=== PATIENT | female | born 1940 | race Caucasian/White ===

== ENCOUNTER 2016-04-21 09:28 | Emergency (ER) | payer OTHER, MEDICARE ==
[~2016-04-21] VITALS: Ht 152.4 cm; Wt 45.4 kg
[~2016-04-21 09:28] MED LIST: ATEN-167 PO; Lipitor
[2016-04-21 09:39] VITALS: BP 146/80; PULSE 87; RESP 16; TEMP 97.6; O2SAT 100
--- NOTE | 2016-04-21 09:45 | NUR ---
Pt report received from BIANCA Levin. Pt c/o Left flank pain radiating to back x 4 days. Denies c/o N/V/D. Denies urinary symptoms. Family members at bedside.
--- NOTE | 2016-04-21 09:45 | NUR ---
Note undone in EDM - 04/21/16 at 1114 by CISCO # 20 gauge angiocath placed to RAC. Use of asceptic technique. Opsite placed over site. Blood return noted. Blood for lab drawn from site. Flushed with 10 cc of normal saline. No evidence of infiltration noted. Patient tolerated well.
--- NOTE | 2016-04-21 09:45 | NUR ---
Patient to ER bed 5 to gown for evaluation. Side rails up. Report given to LEEANN VALENZUELA.
--- NOTE | 2016-04-21 09:50 | NUR ---
DR. MARTÍNEZ AT BEDSIDE EXAMINING THE PT.
[2016-04-21 10:24] LABS: ANION GAP 7 (5-15); CHLORIDE 101 mmol/L (98-107); CREATININE 0.95 mg/dL (0.55-1.30); GLUCOSE 155 mg/dL (70-99); POTASSIUM 3.9 mmol/L (3.5-5.1); SODIUM SERUM 136 mmol/L (136-145); UREA NITROGEN, BLOOD 12 mg/dL (8-21)
[2016-04-21 10:28] LABS: BASOPHILS # (AUTO) 0.2 K/uL (0.0-0.2); BASOPHILS % (AUTO) 1.6 % (0.0-2.0); EOSINOPHILS % (AUTO) 0.2 % (0.0-4.0); HEMATOCRIT 35.3 % (36-48); HEMOGLOBIN 12.1 g/dL (12.0-16.0); LYMPHOCYTES # (AUTO) 1.5 K/uL (1.0-5.5); MEAN CORPUSCULAR HEMOGLOBIN 29 pg (27-31); MEAN CORPUSCULAR HGB CONC 34 % (32-36); MEAN CORPUSCULAR VOLUME 85 fL (79.0-98.0); MONOCYTES # (AUTO) 1.1 K/uL (0.0-1.0); MONOCYTES % (AUTO) 8.7 % (1.7-9.3); NEUTROPHILS # (AUTO) 9.3 K/uL (1.8-7.7); NEUTROPHILS % (AUTO) 77.5 % (40.0-70.0); PLATELET COUNT (AUTO) 242 K/uL (130-430); RED BLOOD CELL COUNT(AUTO) 4.18 MIL/uL (4.2-6.2); RED CELL DISTRIBUTION WIDTH 13.6 % (9.0-15.0); WHITE BLOOD COUNT (AUTO) 12.1 K/uL (4.8-10.8)
[2016-04-21 10:29] LABS: ALANINE AMINOTRANSFERASE 17 U/L (12-78); ALBUMIN 3.8 g/dL (3.4-4.8); ASPARTATE AMINOTRANSFERASE 20 U/L (10-37); TOTAL BILIRUBIN 0.5 mg/dL (0.0-1.0); TOTAL PROTEIN, SERUM 8.3 g/dL (6.4-8.3)
[2016-04-21 10:37] LABS: BILIRUBIN,URINE NEGATIVE (NEGATIVE); BLOOD, URINE 1+ (NEGATIVE); CLARITY/URINE CLEAR (CLEAR); COLOR,URINE YELLOW (YELLOW); GLUCOSE,URINE NEGATIVE (NEGATIVE); KETONES,URINE TRACE (NEGATIVE); LEUKOCYTE ESTERASE ,URINE NEGATIVE (NEGATIVE); NITRITE, URINE NEGATIVE (NEGATIVE); PROTEIN URINE TRACE (NEGATIVE)
[2016-04-21 10:45] LABS: BACTERIA,URINE FEW /HPF (None Seen); MUCUS,URINE 1+ /LPF (None Seen); WBC,URINE 0-3 /HPF (0-3)
[2016-04-21] MEDS ORDERED: KETOROLAC TROMETHAMINE 60 MG/2 ML VIAL IM ONE (11:15)
[2016-04-21] MEDS ORDERED: LORazepam 2 MG/ML VIAL (FOR ER USE) IM ONE (11:15)
--- NOTE | 2016-04-21 11:42 | NUR ---
INCENTIVE SPIROMETER GIVEN TO PT BY RT SALAZAR PT WITH TECHNIQUE. PT UNDERSTANDS NEED FOR INCENTIVE SPIROMETER AND WHEN TO USE IT
[2016-04-21 12:00] VITALS: BP 136/78; PULSE 80; RESP 16; TEMP 98.1
--- NOTE | 2016-04-21 12:00 | NUR ---
Patient given written and verbal discharge instructions and verbalizes understanding. ER MD DR. MARTÍNEZ discussed with patient the results and treatment provided. Given copies of tests performed in ER. Patient in stable condition. ID arm band removed. Rx of ZOFRAN, FLEXERIL, TRAMADOL given. Patient educated on pain management and to follow up with PMD. Pain Scale 0/10 Opportunity for questions provided and answered.
[2016-05-12 18:58] VITALS: O2SAT 100
== END 2016-04-21 12:00 | disposition home or self-care (01) ==
LOC: SED 09:28
DX: S20.212A Contusion of left front wall of thorax, initial encounter (principal); R10.9 Unspecified abdominal pain; M54.9 Dorsalgia, unspecified; I10 Essential (primary) hypertension; E78.00 Pure hypercholesterolemia, unspecified; M81.0 Age-related osteoporosis without current pathological fracture; W19.XXXA Unspecified fall, initial encounter; Y93.89 Activity, other specified; Y99.8 Other external cause status; Y92.89 Other specified places as the place of occurrence of the external cause
CPT/HCPCS: 36415; 71010; 80053; 81000; 85025; 96372; 99285; J1885; J2060

== ENCOUNTER 2016-05-02 13:02 | Outpatient (CLI) | payer OTHER, MEDICARE | END 2016-05-02 19:26 | disposition home or self-care (01) | LOC: SRD 13:02 | PROVIDERS: ATTEND Internal Medicine | DX: S92.911D Unspecified fracture of right toe(s), subsequent encounter for fracture with routine healing (principal); X58.XXXD Exposure to other specified factors, subsequent encounter ==

== ENCOUNTER 2017-03-31 14:02 | Emergency (ER) | payer OTHER, MEDICARE ==
[~2017-03-31] VITALS: Ht 152.4 cm; Wt 45.4 kg
[2017-03-31 14:27] VITALS: BP_SYST 158
[2017-03-31] MEDS ORDERED: KETOROLAC TROMETHAMINE 30 MG VIAL IVP ONE (18:00)
[2017-03-31 19:35] LABS: BASOPHILS # (AUTO) 0.1 K/uL (0.0-0.2); BASOPHILS % (AUTO) 0.7 % (0.0-2.0); EOSINOPHILS # (AUTO) 0.1 K/uL (0.0-0.4); HEMATOCRIT 35.5 % (36-48); HEMOGLOBIN 11.7 g/dL (12.0-16.0); LYMPHOCYTES # (AUTO) 1.9 K/uL (1.0-5.5); MEAN CORPUSCULAR HEMOGLOBIN 28 pg (27-31); MEAN CORPUSCULAR HGB CONC 33 % (32-36); MEAN CORPUSCULAR VOLUME 86 fL (79.0-98.0); MONOCYTES # (AUTO) 0.6 K/uL (0.0-1.0); MONOCYTES % (AUTO) 7.8 % (1.7-9.3); NEUTROPHILS # (AUTO) 4.5 K/uL (1.8-7.7); NEUTROPHILS % (AUTO) 63.5 % (40.0-70.0); PLATELET COUNT (AUTO) 265 K/uL (130-430); RED BLOOD CELL COUNT(AUTO) 4.13 MIL/uL (4.2-6.2); RED CELL DISTRIBUTION WIDTH 13.6 % (9.0-15.0); WHITE BLOOD COUNT (AUTO) 7.2 K/uL (4.8-10.8)
[2017-03-31 19:40] LABS: ANION GAP 6 (5-15); CALCIUM 9.5 mg/dL (8.4-11.0); CHLORIDE 104 mmol/L (98-107); CREATININE 0.79 mg/dL (0.55-1.30); GLUCOSE 103 mg/dL (70-99); POTASSIUM 4.2 mmol/L (3.5-5.1); SODIUM SERUM 138 mmol/L (136-145); UREA NITROGEN, BLOOD 11 mg/dL (8-21)
[2017-03-31 19:47] LABS: ALANINE AMINOTRANSFERASE 25 U/L (12-78); ALBUMIN 3.7 g/dL (3.4-4.8); ASPARTATE AMINOTRANSFERASE 31 U/L (10-37); TOTAL BILIRUBIN 0.3 mg/dL (0.0-1.0)
[2017-03-31 19:51] LABS: INR 1.1 (0.8-1.2); PROTHROMBIN TIME 11.1 SECS (9.5-12.5)
[2017-03-31] MEDS ORDERED: hydrALAZINE HCL 20 MG/ML VIAL IVP ONE (20:45)
[2017-03-31] MEDS ORDERED: ENALAPRILAT DIHYDRATE 1.25 MG/ML VIAL IVP ONE (20:45)
[2017-03-31] MEDS ORDERED: FENO145T PO (21:23)
[2017-03-31] MEDS ORDERED: PENT400T2 PO (21:23)
[2017-03-31] MEDS ORDERED: ENAL20TA PO (21:23)
[2017-03-31] MEDS ORDERED: ONDANSETRON HCL 4 MG/2 ML VIAL IVP ONE (23:00)
[2017-03-31] MEDS ORDERED: NACL 0.9% 500 ML IV ONE (23:00)
[2017-04-01 00:03] VITALS: BP_SYST 129
== END 2017-04-01 00:03 | disposition home or self-care (01) ==
LOC: SED 14:02
DX: M79.662 Pain in left lower leg (principal); I10 Essential (primary) hypertension; E78.00 Pure hypercholesterolemia, unspecified
CPT/HCPCS: 36415; 80053; 85025; 85379; 85610; 85730; 93005; 93971; 96374; 96375; 99285; J0360; J1885; J2405; J7040; J7030

== ENCOUNTER 2017-05-02 15:31 | Emergency (ER) | payer OTHER, MEDICARE ==
[~2017-05-02] VITALS: Ht 139.7 cm; Wt 45.4 kg
[~2017-05-02 15:31] MED LIST changes: -ATEN-167 PO; +ENAL20TA PO; +FENO145T PO; -Lipitor; +PENT400T2 PO
[2017-05-02 15:45] VITALS: BP_SYST 162
[2017-05-02] MEDS ORDERED: ONDANSETRON 4 MG ODT TAB PO ONE (16:00)
[2017-05-02 16:30] VITALS: BP_SYST 140
== END 2017-05-02 16:30 | disposition home or self-care (01) ==
LOC: SED 15:31
DX: S30.1XXA Contusion of abdominal wall, initial encounter (principal); I10 Essential (primary) hypertension; E78.00 Pure hypercholesterolemia, unspecified; M81.0 Age-related osteoporosis without current pathological fracture; X58.XXXA Exposure to other specified factors, initial encounter; Y93.89 Activity, other specified; Y92.89 Other specified places as the place of occurrence of the external cause; Y99.8 Other external cause status
CPT/HCPCS: 74018; 99283; Q0162

== ENCOUNTER 2017-07-06 15:23 | Emergency (ER) | payer OTHER, MEDICARE ==
[~2017-07-06] VITALS: Ht 152.4 cm; Wt 45.4 kg
[2017-07-06 15:27] VITALS: BP_SYST 149
[2017-07-06] MEDS ORDERED: ACETAMINOPHEN 325 MG TABLET PO ONE (16:00)
[2017-07-06 16:20] VITALS: BP_SYST 159
== END 2017-07-06 16:20 | disposition home or self-care (01) ==
LOC: SED 15:23
DX: S62.666A Nondisplaced fracture of distal phalanx of right little finger, initial encounter for closed fracture (principal); I10 Essential (primary) hypertension; E78.00 Pure hypercholesterolemia, unspecified; M81.0 Age-related osteoporosis without current pathological fracture; W20.8XXA Other cause of strike by thrown, projected or falling object, initial encounter; Y93.89 Activity, other specified; Y92.89 Other specified places as the place of occurrence of the external cause; Y99.8 Other external cause status
CPT/HCPCS: 73140-TC; 99284

== ENCOUNTER 2018-09-17 13:46 | Outpatient (CLI) | payer BC ==
[~2018-09-17 13:46] MED LIST changes: +PENT400T12 PO; -PENT400T2 PO
== END 2018-09-17 20:55 | disposition home or self-care (01) ==
LOC: SRD 13:46
PROVIDERS: ATTEND Internal Medicine
DX: M25.561 Pain in right knee (principal)
CPT/HCPCS: 73564

== ENCOUNTER 2018-10-20 11:06 | Emergency (ER) | payer BC ==
[~2018-10-20] VITALS: Ht 152.4 cm; Wt 45.4 kg
[2018-10-20 11:15] VITALS: BP_SYST 140
[2018-10-20 14:18] VITALS: BP_SYST 140
== END 2018-10-20 14:27 | disposition home or self-care (01) ==
LOC: SED 11:06
DX: M25.561 Pain in right knee (principal); E78.00 Pure hypercholesterolemia, unspecified; I10 Essential (primary) hypertension; Z90.89 Acquired absence of other organs
CPT/HCPCS: 73564; 93971; 99284

== ENCOUNTER 2018-12-28 10:03 | Emergency (ER) | payer BC ==
[~2018-12-28] VITALS: Ht 152.4 cm; Wt 45.4 kg
[~2018-12-28 10:03] MED LIST changes: -PENT400T12 PO; +PENT400T17 PO
[2018-12-28 10:10] VITALS: BP_SYST 163
[2018-12-28 12:05] VITALS: BP_SYST 150
== END 2018-12-28 12:05 | disposition home or self-care (01) ==
LOC: SED 10:03
DX: S83.92XA Sprain of unspecified site of left knee, initial encounter (principal); M25.462 Effusion, left knee; E78.00 Pure hypercholesterolemia, unspecified; I10 Essential (primary) hypertension; Z79.899 Other long term (current) drug therapy; W01.0XXA Fall on same level from slipping, tripping and stumbling without subsequent striking against object, initial encounter; Y93.89 Activity, other specified; Y92.89 Other specified places as the place of occurrence of the external cause; Y99.8 Other external cause status
CPT/HCPCS: 73564; 99283

== ENCOUNTER 2019-01-08 09:32 | Outpatient (CLI) | payer BC | END 2019-01-08 21:04 | disposition home or self-care (01) | LOC: SRD 09:32 | PROVIDERS: ATTEND Internal Medicine | DX: M25.561 Pain in right knee (principal) | CPT/HCPCS: 73564 ==

== ENCOUNTER 2020-11-28 13:56 | Emergency (ER) | payer BC ==
[~2020-11-28] VITALS: Ht 144.8 cm; Wt 46.3 kg
[~2020-11-28 13:56] MED LIST changes: -ENAL20TA PO; +ENAL20TA18 PO
[2020-11-28 14:30] VITALS: BP_SYST 148
--- NOTE | 2020-11-28 14:38 | NUR ---
Patient to ER bed 07 to gown for evaluation. Side rails up.
--- NOTE | 2020-11-28 14:40 | NUR ---
Pt walked in to ER with c/o urinary pain, retention, burning and urgency x3 days, pain 8/10. Denies any fever, n/v at this time. VS stable, no acute distress noted.
--- NOTE | 2020-11-28 14:48 | NUR ---
ER Dr. Colbert at bedside examining patient.
[2020-11-28] MEDS ORDERED: cefTRIAXone 1 GM VIAL IM ONE ×2 (15:15→18:15)
[2020-11-28 15:17] LABS: BILIRUBIN,URINE NEGATIVE (NEGATIVE); BLOOD, URINE 1+ (NEGATIVE); CLARITY/URINE CLEAR (CLEAR); COLOR,URINE YELLOW (YELLOW); GLUCOSE,URINE NEGATIVE (NEGATIVE); KETONES,URINE NEGATIVE (NEGATIVE); LEUKOCYTE ESTERASE ,URINE NEGATIVE (NEGATIVE); NITRITE, URINE NEGATIVE (NEGATIVE); PH,URINE 5.5 (5.0-8.0); PROTEIN URINE NEGATIVE (NEGATIVE); UROBILINOGEN,URINE 0.2 (0.2-1.0)
[2020-11-28] MEDS ORDERED: LIDOCAINE 1%, 20 ML MDV 20 ML ONE ×2 (15:38→18:26)
[2020-11-28] MEDS ORDERED: TRIAMCINOLONE ACETONIDE 0.025% 80 GM CREAM.GM. TP STA (15:42)
[2020-11-28] MEDS ORDERED: cefTRIAXone 1 GM VIAL ONE (15:46)
[2020-11-28 15:48] LABS: BACTERIA,URINE FEW /HPF (None Seen); RBC,URINE 0-3 /HPF (0-3)
[2020-11-28 15:49] LABS: FINE GRANULAR CASTS,URINE 0-10 /LPF (None Seen); MUCUS,URINE None Seen /LPF (None Seen)
--- NOTE | 2020-11-28 16:25 | NUR ---
Pelvic exam performed by Dr Saravia with myself at bedside for entire examination. Patient unable to complete procedure, states she is in pain and do not feel comfortable . Patient assisted to position of comfort after examination.
--- NOTE | 2020-11-28 16:30 | NUR ---
Note maxim in ED - 11/28/20 at 1638 by [email or web address] Pelvic exam performed by Dr Saravia with myself at bedside for entire examination. Patient tolerated procedure . Patient assisted to position of comfort after examination.
--- NOTE | 2020-11-28 16:39 | NUR ---
Pt unable to tolerate transvaginal ultrasound , regular ultrasound will be done after water intake
[2020-11-28 17:09] LABS: BASOPHILS # (AUTO) 0.1 K/uL (0.0-0.2); BASOPHILS % (AUTO) 0.8 % (0.0-2.0); EOSINOPHILS # (AUTO) 0.1 K/uL (0.0-0.4); EOSINOPHILS % (AUTO) 0.8 % (0.0-4.0); HEMATOCRIT 37.2 % (36-48); HEMOGLOBIN 12.4 g/dL (12.0-16.0); LYMPHOCYTES % (AUTO) 30.5 % (20.5-51.5); MEAN CORPUSCULAR HEMOGLOBIN 28 pg (27-31); MEAN CORPUSCULAR HGB CONC 33 % (32-36); MEAN CORPUSCULAR VOLUME 85 fL (79.0-98.0); MONOCYTES # (AUTO) 0.9 K/uL (0.0-1.0); NEUTROPHILS # (AUTO) 5.9 K/uL (1.8-7.7); NEUTROPHILS % (AUTO) 58.9 % (40.0-70.0); PLATELET COUNT (AUTO) 294 K/uL (130-430); RED BLOOD CELL COUNT(AUTO) 4.38 MIL/uL (4.2-6.2); RED CELL DISTRIBUTION WIDTH 14.3 % (9.0-15.0); WHITE BLOOD COUNT (AUTO) 9.9 K/uL (4.8-10.8)
--- NOTE | 2020-11-28 17:10 | NUR ---
Patient transported to radiology for US, via ambulatory, accompanied by staff.
[2020-11-28 17:18] LABS: ANION GAP 6 (5-15); CALCIUM 9.6 mg/dL (8.4-11.0); CHLORIDE 103 mmol/L (98-107); CREATININE 0.99 mg/dL (0.55-1.30); GLUCOSE 99 mg/dL (70-99); POTASSIUM 3.9 mmol/L (3.5-5.1); SODIUM SERUM 136 mmol/L (136-145); UREA NITROGEN, BLOOD 16 mg/dL (8-21)
[2020-11-28 17:24] LABS: ALANINE AMINOTRANSFERASE 20 U/L (12-78); ALBUMIN 4.2 g/dL (3.4-4.8); ASPARTATE AMINOTRANSFERASE 24 U/L (10-37); TOTAL BILIRUBIN 0.3 mg/dL (0.0-1.0)
[2020-11-28] MEDS ORDERED: NITR-85 PO (18:12)
--- NOTE | 2020-11-28 18:30 | NUR ---
Patient given written and verbal discharge instructions and verbalizes understanding. ER MD discussed with patient the results and treatment provided. Patient in stable condition. ID arm band removed. Rx of Macrobid given. Patient educated on pain management and to follow up with PMD. Pain Scale 0. Opportunity for questions provided and answered. Medication side effect fact sheet provided.
[2020-11-28 18:34] VITALS: BP_SYST 148
== END 2020-11-28 18:34 | disposition home or self-care (01) ==
LOC: SED 13:56
DX: R30.0 Dysuria (principal); I10 Essential (primary) hypertension; E78.00 Pure hypercholesterolemia, unspecified; Z79.899 Other long term (current) drug therapy
CPT/HCPCS: 36415; 76830; 76857; 80053; 81000; 81003; 85025; 87086; 96372; 99284; J0696; J2001

== ENCOUNTER 2021-11-06 09:21 | Emergency (ER) | payer BC ==
[~2021-11-06] VITALS: Ht 127 cm; Wt 48.1 kg
[~2021-11-06 09:21] MED LIST changes: +NITR-85 PO
[2021-11-06 09:40] VITALS: BP_SYST 162
[2021-11-06] MEDS ORDERED: LORazepam 1 MG TABLET PO ONE (10:00)
[2021-11-06 10:21] LABS: BASOPHILS % (AUTO) 0.5 % (0.0-2.0); EOSINOPHILS # (AUTO) 0.1 K/uL (0.0-0.4); EOSINOPHILS % (AUTO) 0.9 % (0.0-4.0); HEMATOCRIT 34.7 % (36-48); HEMOGLOBIN 11.7 g/dL (12.0-16.0); LYMPHOCYTES # (AUTO) 1.4 K/uL (1.0-5.5); LYMPHOCYTES % (AUTO) 21.5 % (20.5-51.5); MEAN CORPUSCULAR HEMOGLOBIN 28 pg (27-31); MEAN CORPUSCULAR HGB CONC 34 % (32-36); MEAN CORPUSCULAR VOLUME 84 fL (79.0-98.0); MONOCYTES # (AUTO) 0.4 K/uL (0.0-1.0); MONOCYTES % (AUTO) 6.8 % (1.7-9.3); NEUTROPHILS # (AUTO) 4.5 K/uL (1.8-7.7); NEUTROPHILS % (AUTO) 70.3 % (40.0-70.0); PLATELET COUNT (AUTO) 286 K/uL (130-430); RED BLOOD CELL COUNT(AUTO) 4.14 MIL/uL (4.2-6.2); RED CELL DISTRIBUTION WIDTH 14.7 % (9.0-15.0); WHITE BLOOD COUNT (AUTO) 6.4 K/uL (4.8-10.8)
[2021-11-06 10:25] LABS: ANION GAP 5 (5-15); CALCIUM 8.9 mg/dL (8.4-11.0); CHLORIDE 104 mmol/L (98-107); CREATININE 1.27 mg/dL (0.55-1.30); GLUCOSE 118 mg/dL (70-99); POTASSIUM 3.7 mmol/L (3.5-5.1); SODIUM SERUM 138 mmol/L (136-145); UREA NITROGEN, BLOOD 19 mg/dL (8-21)
[2021-11-06 10:35] LABS: ALANINE AMINOTRANSFERASE 20 U/L (12-78); ALBUMIN 3.9 g/dL (3.4-4.8); ASPARTATE AMINOTRANSFERASE 28 U/L (10-37); TOTAL BILIRUBIN 0.2 mg/dL (0.0-1.0)
[2021-11-06] MEDS ORDERED: ALBMDI INH (11:16)
[2021-11-06] MEDS ORDERED: LORA-258 PO (11:16)
[2021-11-06 11:26] VITALS: BP_SYST 115
== END 2021-11-06 11:26 | disposition home or self-care (01) ==
LOC: SED 09:21
DX: F41.9 Anxiety disorder, unspecified (principal); R06.02 Shortness of breath; I10 Essential (primary) hypertension; Z79.899 Other long term (current) drug therapy
CPT/HCPCS: 36415; 71045; 80053; 83880; 84484; 85025; 93005; 99285

== ENCOUNTER 2023-04-17 15:22 | Emergency (ER) | payer BC ==
[~2023-04-17] VITALS: Ht 152.4 cm; Wt 49.9 kg
[~2023-04-17 15:22] MED LIST changes: +ALBMDI INH; +ENAL-79 PO; -ENAL20TA18 PO; +LORA-258 PO
[2023-04-17 15:30] VITALS: BP_SYST 193; PULSE 92; RESP 17; TEMP 97.6; O2SAT 96
[2023-04-17 16:04] LABS: COVID19 ANTIGEN SOFIA FIA NEGATIVE (NEGATIVE)
[2023-04-17 16:09] LABS: INFLUENZA TYPE A Negative (NEGATIVE); INFLUENZA TYPE B NEGATIVE (NEGATIVE)
[2023-04-17 16:33] LABS: BASOPHILS % (AUTO) 0.5 % (0.0-2.0); EOSINOPHILS % (AUTO) 0.9 % (0.0-4.0); HEMATOCRIT 32.8 % (36-48); HEMOGLOBIN 11.3 g/dL (12.0-16.0); LYMPHOCYTES # (AUTO) 0.8 K/uL (1.0-5.5); LYMPHOCYTES % (AUTO) 17.8 % (20.5-51.5); MEAN CORPUSCULAR HEMOGLOBIN 29 pg (27-31); MEAN CORPUSCULAR HGB CONC 35 % (32-36); MEAN CORPUSCULAR VOLUME 85 fL (79.0-98.0); MONOCYTES # (AUTO) 0.9 K/uL (0.0-1.0); MONOCYTES % (AUTO) 18.5 % (1.7-9.3); NEUTROPHILS # (AUTO) 2.9 K/uL (1.8-7.7); NEUTROPHILS % (AUTO) 62.3 % (40.0-70.0); PLATELET COUNT (AUTO) 264 K/uL (130-430); RED BLOOD CELL COUNT(AUTO) 3.87 MIL/uL (4.2-6.2); RED CELL DISTRIBUTION WIDTH 14.4 % (9.0-15.0); WHITE BLOOD COUNT (AUTO) 4.6 K/uL (4.8-10.8)
[2023-04-17 16:50] LABS: ANION GAP 8 (5-15); CALCIUM 9.3 mg/dL (8.4-11.0); CARBON DIOXIDE 28 mmol/L (23-29); CHLORIDE 103 mmol/L (98-107); CREATININE 1.17 mg/dL (0.55-1.30); GLUCOSE 102 mg/dL (74-106); POTASSIUM 4.6 mmol/L (3.5-5.1); SODIUM SERUM 139 mmol/L (136-145); UREA NITROGEN, BLOOD 21 mg/dL (8-21)
[2023-04-17] MEDS ORDERED: ACETAMINOPHEN 500 MG TABLET PO ONE (19:45)
[2023-04-17] MEDS ORDERED: IBUPROFEN 400 MG TABLET PO ONE (19:45)
[2023-04-17] MEDS ORDERED: ONDA-8 TL (20:14)
[2023-04-17 20:32] VITALS: BP_SYST 175; PULSE 90; RESP 17; TEMP 97.8; O2SAT 96
== END 2023-04-17 20:32 | disposition home or self-care (01) ==
LOC: SED 15:22
DX: J06.9 Acute upper respiratory infection, unspecified (principal); R05.9 Cough, unspecified; R09.81 Nasal congestion; J02.9 Acute pharyngitis, unspecified; I10 Essential (primary) hypertension; Z79.899 Other long term (current) drug therapy; Z20.822 Contact with and (suspected) exposure to COVID-19
CPT/HCPCS: 36415; 71045; 80048; 83880; 84484; 85025; 93005; 99285

== ENCOUNTER 2023-08-14 12:20 | Emergency (ER) | payer BC ==
[~2023-08-14] VITALS: Ht 162.6 cm; Wt 46.3 kg
[~2023-08-14 12:20] MED LIST changes: +ONDA-8 TL
[2023-08-14 12:30] VITALS: BP_SYST 170; PULSE 85; RESP 18; TEMP 98.1; O2SAT 98
[2023-08-14] MEDS: NACL 0.9% 1,000 ML IV ONE (13:19)
[2023-08-14] MEDS: ONDANSETRON HCL 4 MG/2 ML VIAL IVP ONE ×2 (13:20→15:03)
[2023-08-14 13:50] LABS: BASOPHILS % (AUTO) 0.2 % (0.0-2.0); HEMATOCRIT 33.7 % (36-48); HEMOGLOBIN 11.4 g/dL (12.0-16.0); LYMPHOCYTES # (AUTO) 0.4 K/uL (1.0-5.5); LYMPHOCYTES % (AUTO) 11.4 % (20.5-51.5); MEAN CORPUSCULAR HEMOGLOBIN 29 pg (27-31); MEAN CORPUSCULAR HGB CONC 34 % (32-36); MEAN CORPUSCULAR VOLUME 85 fL (79.0-98.0); MONOCYTES # (AUTO) 0.5 K/uL (0.0-1.0); MONOCYTES % (AUTO) 14.8 % (1.7-9.3); NEUTROPHILS # (AUTO) 2.6 K/uL (1.8-7.7); NEUTROPHILS % (AUTO) 73.6 % (40.0-70.0); PLATELET COUNT (AUTO) 242 K/uL (130-430); RED BLOOD CELL COUNT(AUTO) 3.99 MIL/uL (4.2-6.2); RED CELL DISTRIBUTION WIDTH 14.6 % (9.0-15.0); WHITE BLOOD COUNT (AUTO) 3.5 K/uL (4.8-10.8)
[2023-08-14 13:56] LABS: INFLUENZA TYPE A NEGATIVE (NEGATIVE); INFLUENZA TYPE B NEGATIVE (NEGATIVE)
[2023-08-14 14:05] LABS: ALANINE AMINOTRANSFERASE 18 U/L (12-78); ALBUMIN 3.9 g/dL (3.4-4.8); ANION GAP 12 (5-15); ASPARTATE AMINOTRANSFERASE 22 U/L (10-37); BILIRUBIN,DIRECT 0.1 mg/dL (0.0-0.3); CALCIUM 9.2 mg/dL (8.4-11.0); CARBON DIOXIDE 27 mmol/L (23-29); CHLORIDE 101 mmol/L (98-107); CREATININE 1.32 mg/dL (0.55-1.30); GLUCOSE 127 mg/dL (74-106); LIPASE 69 U/L (16-77); POTASSIUM 3.8 mmol/L (3.5-5.1); SODIUM SERUM 140 mmol/L (136-145); TOTAL BILIRUBIN 0.4 mg/dL (0.0-1.0); TOTAL PROTEIN, SERUM 7.7 g/dL (6.4-8.3); UREA NITROGEN, BLOOD 17 mg/dL (8-21)
[2023-08-14] MEDS: KETOROLAC TROMETHAMINE 30 MG VIAL IVP ONE (15:03)
[2023-08-14 15:27] LABS: BILIRUBIN,URINE NEGATIVE (NEGATIVE); BLOOD, URINE 2+ (NEGATIVE); CLARITY/URINE CLEAR (CLEAR); COLOR,URINE YELLOW (YELLOW); GLUCOSE,URINE NEGATIVE (NEGATIVE); KETONES,URINE NEGATIVE (NEGATIVE); LEUKOCYTE ESTERASE ,URINE NEGATIVE (NEGATIVE); NITRITE, URINE NEGATIVE (NEGATIVE); PROTEIN URINE NEGATIVE (NEGATIVE); UROBILINOGEN,URINE 0.2 (0.2-1.0)
[2023-08-14 15:46] LABS: BACTERIA,URINE RARE /HPF (None Seen); WBC,URINE 0-3 /HPF (0-3)
[2023-08-14] MEDS ORDERED: IBUP-2018 PO (16:05)
[2023-08-14] MEDS ORDERED: AMOX-423 PO (16:05)
[2023-08-14] MEDS ORDERED: ONDA-8 TL (16:05)
[2023-08-14 16:29] VITALS: BP_SYST 154; PULSE 88; RESP 16; TEMP 98.1; O2SAT 99
== END 2023-08-14 16:31 | disposition home or self-care (01) ==
LOC: SED 12:20
DX: B34.9 Viral infection, unspecified (principal); R51.9 Headache, unspecified; R11.2 Nausea with vomiting, unspecified; R19.7 Diarrhea, unspecified; I10 Essential (primary) hypertension; Z20.822 Contact with and (suspected) exposure to COVID-19
CPT/HCPCS: 99285; 74176; 96374; 71045; 96361; 96375; 87426; 80076; 80048; 81001; 83690; 85025; 36415; 96376; 87804 ×2; 81000; 81015; J1885; J2405; J7030

== ENCOUNTER 2023-11-20 17:59 | Emergency (ER) | payer BC ==
[~2023-11-20] VITALS: Ht 144.8 cm; Wt 49.9 kg
[~2023-11-20 17:59] MED LIST changes: +AMOX-423 PO; +IBUP-2018 PO
[2023-11-20 18:04] VITALS: BP_SYST 178; PULSE 85; RESP 16; TEMP 98.3; O2SAT 99
[2023-11-20] MEDS: ASPIRIN 81 MG TAB.CHEW PO ONE (18:48)
[2023-11-20 19:09] LABS: BASOPHILS # (AUTO) 0.1 K/uL (0.0-0.2); BASOPHILS % (AUTO) 1.6 % (0.0-2.0); EOSINOPHILS # (AUTO) 0.1 K/uL (0.0-0.4); EOSINOPHILS % (AUTO) 1.3 % (0.0-4.0); HEMATOCRIT 34.2 % (36-48); HEMOGLOBIN 11.7 g/dL (12.0-16.0); LYMPHOCYTES # (AUTO) 0.6 K/uL (1.0-5.5); LYMPHOCYTES % (AUTO) 12.7 % (20.5-51.5); MEAN CORPUSCULAR HEMOGLOBIN 28 pg (27-31); MEAN CORPUSCULAR HGB CONC 34 % (32-36); MEAN CORPUSCULAR VOLUME 83 fL (79.0-98.0); MONOCYTES # (AUTO) 0.7 K/uL (0.0-1.0); MONOCYTES % (AUTO) 15.1 % (1.7-9.3); NEUTROPHILS # (AUTO) 3.2 K/uL (1.8-7.7); NEUTROPHILS % (AUTO) 69.3 % (40.0-70.0); PLATELET COUNT (AUTO) 275 K/uL (130-430); RED BLOOD CELL COUNT(AUTO) 4.12 MIL/uL (4.2-6.2); RED CELL DISTRIBUTION WIDTH 15.2 % (9.0-15.0); WHITE BLOOD COUNT (AUTO) 4.6 K/uL (4.8-10.8)
[2023-11-20 19:14] LABS: INFLUENZA TYPE A Negative (NEGATIVE); INFLUENZA TYPE B NEGATIVE (NEGATIVE)
[2023-11-20] MEDS: ONDANSETRON 4 MG ODT TAB PO ONE (20:08)
[2023-11-20] MEDS: hydrALAZINE HCL 20 MG/ML VIAL IVP ONE (20:09)
[2023-11-20] MEDS: HYDROcodone/ACETAMIN 5-325 MG TAB (NORCO/ VICODIN) PO ONE (20:11)
[2023-11-20 20:21] LABS: ANION GAP 9 (5-15); CALCIUM 9.2 mg/dL (8.4-11.0); CARBON DIOXIDE 27 mmol/L (23-29); CHLORIDE 97 mmol/L (98-107); CREATININE 1.33 mg/dL (0.55-1.30); GLUCOSE 128 mg/dL (74-106); POTASSIUM 3.8 mmol/L (3.5-5.1); SODIUM SERUM 133 mmol/L (136-145); UREA NITROGEN, BLOOD 13 mg/dL (8-21)
[2023-11-20] MEDS: ONDANSETRON HCL 4 MG/2 ML VIAL IVP ONE (21:11)
[2023-11-20] MEDS ORDERED: ONDA-8 TL (21:30)
[2023-11-20 21:46] VITALS: BP_SYST 154; PULSE 84; RESP 20; TEMP 98; O2SAT 98
== END 2023-11-20 21:46 | disposition home or self-care (01) ==
LOC: SED 17:59
DX: J06.9 Acute upper respiratory infection, unspecified (principal); R11.2 Nausea with vomiting, unspecified; R07.89 Other chest pain; Z20.822 Contact with and (suspected) exposure to COVID-19; I10 Essential (primary) hypertension; Z79.899 Other long term (current) drug therapy; Z79.2 Long term (current) use of antibiotics
CPT/HCPCS: 99285; 96374; 71045; 96375; 87426; 80048; 83880; 85025; 84484; 36415; 93005; 87804 ×2; Q0162; J0360; J2405